=== PATIENT | male | born 1945 | race Caucasian/White ===

== ENCOUNTER 2022-05-17 04:36 | Emergency (ER) | payer MEDICARE, BC ==
[2022-05-17] MEDS ORDERED: amLODIPine 5 MG Tab PO ONE (06:01)
== END 2022-05-17 06:59 | disposition home or self-care (01) ==
LOC: JP.ED 04:36
DX: R04.0 Epistaxis (principal); I48.91 Unspecified atrial fibrillation; I10 Essential (primary) hypertension; K21.9 Gastro-esophageal reflux disease without esophagitis; E11.9 Type 2 diabetes mellitus without complications; Z88.5 Allergy status to narcotic agent; Z91.018 Allergy to other foods; Z88.8 Allergy status to other drugs, medicaments and biological substances; Z79.01 Long term (current) use of anticoagulants; Z79.899 Other long term (current) drug therapy
CPT/HCPCS: 30903; 99283; A9270

== ENCOUNTER 2022-05-18 10:02 | Emergency (ER) | payer MEDICARE, BC | END 2022-05-18 13:47 | disposition home or self-care (01) | LOC: JP.ED 10:02 | DX: R04.0 Epistaxis (principal); I48.91 Unspecified atrial fibrillation; I10 Essential (primary) hypertension; E11.9 Type 2 diabetes mellitus without complications; Z88.5 Allergy status to narcotic agent; Z91.018 Allergy to other foods; Z88.8 Allergy status to other drugs, medicaments and biological substances; Z79.01 Long term (current) use of anticoagulants; Z79.899 Other long term (current) drug therapy; Z79.84 Long term (current) use of oral hypoglycemic drugs | CPT/HCPCS: 30903; 99283-25 ==